=== PATIENT | female | born 1985 | race Two or more races ===

== ENCOUNTER 2025-02-09 06:35 | Day surgery (SDC) | payer MEDICAID, SELFPAY ==
[2025-02-08 11:28] VITALS: BMI 45.3
[2025-02-08 17:37] LABS: HCG Qualitative,Urine Negative
[2025-02-09] VITALS (11 sets, daily range): BP systolic 111–166; BP diastolic 66–105; PULSE 65–92; RESP 15–23; TEMP 36.2–36.8; O2SAT 95–100; BMI 48.7
[2025-02-09] MEDS: SODIUM CHLORIDE 0.9% 500 ML 500 ML 125 ML IV (07:30)
[2025-02-09] MEDS: DiphenhydrAMINE INJ 50 MG/ML VIAL 25 MG IV (07:30)
[2025-02-09] MEDS: fentaNYL CIT INJ 50 mCg/ML AMP 2ML (ASD USE ONLY) IV (07:37)
[2025-02-09] MEDS: MIDAZOLAM INJ 1 MG/ML VIAL 2 ML (ASD USE ONLY) 2 MG IV (07:40)
== END 2025-02-09 08:40 | disposition home or self-care (01) ==
PROVIDERS: PCP Family Medicine; Referring Provider Surgery; Visit Provider Surgery
PROC: 0DBE8ZX Excision of Large Intestine, Via Natural or Artificial Opening Endoscopic, Diagnostic (ICD-10-PCS; CPT 45380; principal; 2025-02-09 07:30)
DX: K64.1 Second degree hemorrhoids (principal)
CPT/HCPCS: 45378; 81025; J1200; J2250; J3010; J7040